=== PATIENT | female | born 1980 | race Caucasian/White ===

== ENCOUNTER → 2017-05-27 | Outpatient (CLI) | payer OTHER ==
--- NOTE | 2017-05-28 11:30 | RADIOLOGY REPORT (SQ) ---
EXAM DESCRIPTION: CT ORBIT/SELLA WITHOUT COMPLETED DATE/TIME: 05/27/2017 3:44 pm REASON FOR STUDY: OTHER SPECIFIFIED DISORDERS OF EUSTACHIAN TUBE, LEFT EAR H69.82 OTHER SPECIFIED D ISORDERS OF EUSTACHIAN TUBE, LEFT EA COMPARISON: None. TECHNIQUE: Noncontrasted thin section axial images through the temporal bones and skull base were ob tained and reviewed at bone windows and bone algorithm with coronal and sagittal reconstructions. All CT scanners at this facility use dose modulation, iterative reconstruction, and/or weight based d osing when appropriate to reduce radiation dose to as low as reasonably achievable (ALARA). [facility]: Dose Right [facility]: CareDose [facility]: Dose Right [facility]: Teradose 4D [facility]: [employer] RADIATION DOSE: 12.8 mGy. LIMITATIONS: None. FINDINGS: RIGHT SIDE: EXTERNAL AUDITORY CANAL: Widely patent. TYMPANIC MEMBRANE: No masses, thickening or medial retraction. OSSICLES AND MIDDLE EAR CAVITY: Normal ossicles. No middle ear masses or fluid. INNER EAR STRUCTURES: Normal vestibule and cochlea. Normal aqueducts. INTERNAL AUDITORY CANAL: Normal bony canal without narrowing or widening. No calcified or ossified m asses. TEMPOROMANDIBULAR JOINT: Normal. MASTOID AIR CELLS: Clear. LEFT SIDE: EXTERNAL AUDITORY CANAL: Widely patent. TYMPANIC MEMBRANE: Medially retracted. There is fluid in the middle ear cavity OSSICLES AND MIDDLE EAR CAVITY: Normal ossicles. There is fluid throughout the left middle ear cavit y extending into the epitympanum and mastoids. INNER EAR STRUCTURES: Normal vestibule and cochlea. Normal aqueducts. INTERNAL AUDITORY CANAL: Normal bony canal without narrowing or widening. No calcified or ossified m asses. TEMPOROMANDIBULAR JOINT: Normal. MASTOID AIR CELLS: Filled with fluid CENTRAL SKULL BASE: Normal foramina. No lytic or blastic lesions. INFERIOR BRAIN: Limited view. No acute findings. LIMITED VIEW OF PARANASAL SINUSES IN THE FIELD OF VIEW: Normal. IMPRESSION: Right CT temporal bones unremarkable. On the left side, there is medial retraction of the tympanic membrane, fluid throughout the middle ea r cavity, epitympanum, and mastoid air cells. Normal ossicles and scutum. No aggressive bony erosio ns TECHNICAL DOCUMENTATION: JOB ID: [id number] Quality ID # [id number]: Final reports with documentation of one or more dose reduction techniques (e.g., Au tomated exposure control, adjustment of the mA and/or kV according to patient size, use of iterative reconstruction technique) 2010 [employer]- All Rights Reserved Reading location - IP/workstation name: [email or web address]
== END ==
LOC: RAD 15:24
PROVIDERS: ATTEND Otolaryngology
DX: H69.82 Other specified disorders of Eustachian tube, left ear (principal)
CPT/HCPCS: 70480

== ENCOUNTER 2017-10-11 05:14 | Day surgery (SDC) | payer OTHER ==
[2017-10-09 12:32] LABS: HEMATOCRIT 34.5 % (36.0-47.0); HEMOGLOBIN 11.7 g/dL (12.0-15.5); MEAN CORPUSCULAR VOLUME 80 fl (80-97); PLATELET COUNT 363 10^3/uL (150-450); RED BLOOD COUNT 4.34 10^6/uL (3.72-5.28); RED CELL DISTRIBUTION WIDTH 14.2 % (11.5-14.0); WHITE BLOOD COUNT 7.5 10^3/uL (4.0-10.5)
[2017-10-09 12:43] LABS: AMORPHOUS SEDIMENT,URINE TRACE /HPF; APPEARANCE,URINE CLOUDY; BILIRUBIN,URINE NEGATIVE (NEGATIVE); COLOR,URINE YELLOW; GLUCOSE, URINE NEGATIVE (NEGATIVE); KETONES,URINE NEGATIVE (NEGATIVE); LEUKOCYTE ESTERASE,URINE NEGATIVE (NEGATIVE); NITRITE,URINE NEGATIVE (NEGATIVE); PROTEIN,URINE NEGATIVE (NEGATIVE); URINE SPECIFIC GRAVITY 1.017; UROBILINOGEN,URINE NEGATIVE mg/dL (<2.0)
[2017-10-09 12:55] LABS: ANION GAP 12 (5-19); BLOOD UREA NITROGEN 10 mg/dL (7-20); CALCIUM 9.3 mg/dL (8.4-10.2); CARBON DIOXIDE 27 mmol/L (22-30); CHLORIDE 104 mmol/L (98-107); GLUCOSE 60 mg/dL (75-110); POTASSIUM 4.1 mmol/L (3.6-5.0); SODIUM 143.3 mmol/L (137-145)
--- NOTE | 2017-10-09 15:13 | EKG REPORT ---
SEVERITY:- NORMAL ECG - SINUS RHYTHM : Confirmed by: Iman Bailey MD 09-Oct-2017 15:12:00
[~2017-10-11 05:14] MED LIST: CEFAZOLIN 1 GM/D5W RTU 1 GM/50 ML RTUPB IV PRN; LACTATED RINGERS 1000 ML IV PRN; LIDOCAINE 0.5% INJ-PF (5 MG/ML) 50 ML SDV SUBCUT PRN
[2017-10-11] MEDS ORDERED: FENTANYL CITRATE INJ/PF 100 MCG/2 ML AMPUL ONE (06:20)
[2017-10-11] MEDS ORDERED: LIDOCAINE 2% INJ-PF (20 MG/ML) 10 ML AMPUL ONE (06:20)
[2017-10-11] MEDS ORDERED: PROPOFOL INJ 200 MG/20 ML VIAL IV ONE (06:21)
[2017-10-11] MEDS ORDERED: MIDAZOLAM 2 MG/2 ML INJ ONE (06:21)
[2017-10-11] MEDS ORDERED: ONDANSETRON HCL INJ/PF 4 MG/2 ML SDV ONE (06:21)
[2017-10-11] MEDS ORDERED: LIDOCAINE 1% INJ-PF (10 MG/ML) 30 ML SDV ONE (07:01)
[2017-10-11] MEDS ORDERED: FENTANYL CITRATE INJ/PF 100 MCG/2 ML AMPUL IV PRN ×3 (07:31)
[2017-10-11] MEDS ORDERED: DIPHENHYDRAMINE HCL 50 MG/ML VIAL IV PRN (07:31)
[2017-10-11] MEDS ORDERED: MEPERIDINE HCL/PF INJ 25 MG/1 ML DISP.SYRIN IV PRN (07:31)
[2017-10-11] MEDS ORDERED: ONDANSETRON HCL INJ/PF 4 MG/2 ML SDV IV PRN (07:31)
[2017-10-11] MEDS ORDERED: PROMETHAZINE HCL INJ 25 MG/1 ML VIAL IV PRN ×2 (07:31)
[2017-10-11] MEDS ORDERED: RINGERS SOLUTION,LACTATED 1,000 ML IV PRN (08:27)
[2017-10-11] MEDS ORDERED: OXYCODONE-ACETAMINOPHEN 5-325 MG TABLET PO PRN ×2 (08:28→08:30)
[2017-10-11] MEDS ORDERED: MORPHINE SULFATE 10 MG/ML INJ INJ PRN (08:28)
[2017-10-11] MEDS ORDERED: PROMETHAZINE HCL INJ 25 MG/1 ML VIAL IM PRN (08:28)
[2017-10-11] MEDS ORDERED: IBUPROFEN 800 MG TABLET ONE (08:32)
--- NOTE | 2017-10-11 08:35 | OPERATIVE REPORT E ---
Operative Report NAME: GERALDINE ZULETA : 1980 AGE: 37Y DATE OF SURGERY: 10/11/2017 ROOM: PREOPERATIVE DIAGNOSIS: Menorrhagia. POSTOPERATIVE DIAGNOSES: 1. Menorrhagia. 2. Septate uterus. PROCEDURE: 1. Hysteroscopy, endometrial biopsy, D and C. 2. Planned NovaSure was aborted. SURGEON: ERIN MADSEN M.D. FINDINGS: Septate uterus, 4 cm length x 2.5 cm width, midline structure present connecting anterior and posterior mon of the uterus with what appeared to be cornu extending bilaterally from the central canal as diagrammed above. Photographs were taken although difficult to encompass in 1 photograph. SPECIMENS REMOVED: Endometrial biopsy was scant. INDICATIONS FOR PROCEDURE: The patient had abnormal uterine bleeding unresponsive to usual outpatient management. Ultrasound demonstrated a thickened endometrial cavity as well as presence of exophytic fibroids present. She desired attempted NovaSure versus hysterectomy. The usual risks of bleeding, infection, anesthesia, damage to organs or tissues had been discussed with the patient who understood. PROCEDURE: The patient was taken to the operating room, placed in modified lithotomy position, adequate anesthesia was ascertained, prepped and draped in the usual manner for a hysteroscopy and NovaSure procedure. Cervix was slowly and methodically dilated to admit a NovaSure hysteroscope after surgical time out was performed and EUA performed. The uterus was in the midline and mobile with good descent. Measurements were taken. Hysteroscopy ensued. A very small cavity was encountered with bilateral cornu noted. Endometrial biopsy was performed at this point due to outpatient biopsy being mostly endocervix and productive of a small amount of tissue. As the NovaSure device was already open measurements were taken width slaughter to confirm the impression that the canal was too small and the procedure was confirmed as inadequate for cavity. At completion of this bleeding was nil. Rehysteroscopy demonstrated intact uterus. The patient was awakened and taken to recovery in stable condition. DICTATING PHYSICIAN: ERIN MADSEN M.D. [id number] PHY#: [id number] ID: [id number] JOB#: [id number] ACCT: [id number] cc:ERIN MADSEN M.D. >
[2017-10-11 09:24] VITALS: BP 105/64
[2017-10-11] MEDS ORDERED: IBUPROFEN 800 MG TABLET PO SCH (14:00)
== END 2017-10-11 09:30 | disposition home or self-care (01) ==
LOC: OROUT 05:14
PROVIDERS: ATTEND Specialist
DX: N92.0 Excessive and frequent menstruation with regular cycle (principal); Q51.2 Other doubling of uterus; D25.9 Leiomyoma of uterus, unspecified
CPT/HCPCS: 93005; 86900; 86901; 36415; 86850; 82962; 85027; 81025; 80048; 81001; 88305 ×2; 93010; 58558; J2250; J0690; J3010; J3490 ×2; J2405; J2704; 952